=== PATIENT | male | born 2000 | race Caucasian/White ===

== ENCOUNTER 2022-06-16 10:18 | Inpatient (IN) | payer OTHER ==
[~2022-06-16 10:18] MED LIST: Iopamidol 300 61% 100 ML VIAL FS ONE
[2022-06-16] MEDS ORDERED: Morphine 4 MG/ML VIAL ONE ×2 (10:56→14:02)
[2022-06-16] MEDS ORDERED: Ondansetron PF 4 MG/2 ML Vial ONE (10:56)
[2022-06-16 11:05] LABS: #Basophils 0.1 10x3/uL (0.0-0.2); #Eosinphils 0.4 10x3/uL (0.0-0.5); #Monocytes 0.8 10x3/uL (0.0-1.1); #Neutrophils 3.5 10x3/uL (1.5-8.4); %Basophils 1.5 % (0.0-2.0); %Eosinophils 5.1 % (0.0-6.0); %Lymphocytes 31.4 % (18.0-47.0); %Monocytes 10.9 % (0.0-10.0); %Neutrophils 50.8 % (40.0-75.0); Hemoglobin 15.4 g/dL (13.5-17.5); Mean Corpuscular HGB CONC 34.5 g/dL (32.0-36.0); Mean Corpuscular Hemoglobin 30.1 pg (27.0-33.0); Mean Corpuscular Volume 87.1 fl (81.2-95.1); Mean Platelet Volume 10.4 fl (7.4-10.4); Platelet Count 221 10x3/uL (150-450); RBC Distribution Width 12.5 % (11.5-14.5); Red Blood Cell (RBC) Count 5.12 10x6/uL (4.32-5.72); White Blood Cell (WBC) Count 6.9 10x3/uL (3.5-10.5)
[2022-06-16 11:15] LABS: ALT (SGPT) 6 U/L (8-55); AST (SGOT) 14 U/L (5-34); Alkaline Phosphatase 50 U/L (40-110); Anion Gap 15 mmol/L (10-20); BUN (Urea Nitrogen) 18 mg/dL (8.9-20.6); Bilirubin, Total 0.5 mg/dL (0.2-1.2); Calc. Creatinine Clearance 0 mL/min (70-130); Calcium 9.9 mg/dL (7.8-10.44); Carbon Dioxide 28 mmol/L (22-29); Chloride 100 mmol/L (98-107); Estimated GFR 109; Globulin 2.2 g/dL (2.4-3.5); Glucose 99 mg/dL (70-105); Lipase 37 U/L (8-78); Potassium 4.4 mmol/L (3.5-5.1); Protein, Total 7.2 g/dL (6.0-8.3); Sodium 139 mmol/L (136-145)
[2022-06-16] MEDS ORDERED: Ondansetron ODT 4 MG TAB PO PRN (14:53)
[2022-06-16] MEDS ORDERED: Morphine 2 MG/ML VIAL SLOW IVP PRN (15:10)
[2022-06-16 15:21] LABS: Magnesium 2.1 mg/dL (1.6-2.6)
[2022-06-16] MEDS: Sodium Chloride 0.9% 1,000 ML IV SCH (18:35)
[2022-06-16] MEDS ORDERED: methylPREDNISolone Sod Succ 40 MG VIAL IVP SCH (20:00)
[2022-06-16] MEDS ORDERED: metroNIDAZOLE 500 MG in Premix Bag 1 BAG IVPB SCH (22:00)
[2022-06-16] MEDS: Nicotine 14 MG PATCH TD SCH (22:05)
[2022-06-17 03:01] VITALS: BMI 19.2
[2022-06-17] MEDS: Sodium Chloride 0.9% 1,000 ML IV SCH ×2 (04:05→17:15)
[2022-06-17 04:36] LABS: #Basophils 0.1 10x3/uL (0.0-0.2); #Eosinphils 0.3 10x3/uL (0.0-0.5); #Monocytes 0.5 10x3/uL (0.0-1.1); #Neutrophils 2.8 10x3/uL (1.5-8.4); %Basophils 1.1 % (0.0-2.0); %Eosinophils 5.5 % (0.0-6.0); %Lymphocytes 33.8 % (18.0-47.0); %Monocytes 9.4 % (0.0-10.0); Hemoglobin 13.5 g/dL (13.5-17.5); Mean Corpuscular HGB CONC 33.4 g/dL (32.0-36.0); Mean Corpuscular Hemoglobin 29.5 pg (27.0-33.0); Mean Corpuscular Volume 88.2 fl (81.2-95.1); Mean Platelet Volume 10.9 fl (7.4-10.4); Platelet Count 195 10x3/uL (150-450); RBC Distribution Width 12.6 % (11.5-14.5); Red Blood Cell (RBC) Count 4.58 10x6/uL (4.32-5.72); White Blood Cell (WBC) Count 5.7 10x3/uL (3.5-10.5)
[2022-06-17 04:45] LABS: Anion Gap 12 mmol/L (10-20); BUN (Urea Nitrogen) 11 mg/dL (8.9-20.6); Calc. Creatinine Clearance 113 mL/min (70-130); Carbon Dioxide 24 mmol/L (22-29); Chloride 108 mmol/L (98-107); Estimated GFR 126; Glucose 89 mg/dL (70-105); Potassium 4.5 mmol/L (3.5-5.1); Sodium 139 mmol/L (136-145)
[2022-06-17] MEDS: Acetaminophen 325 MG TAB PO PRN (10:25)
[2022-06-17] MEDS ORDERED: GoLYTELY 4,000 ml Bottle PO SCH (12:00)
[2022-06-17 13:35] LABS: Bilirubin Neg (Negative); Blood, Urine Negative (Negative); Clarity Clear (Clear); Glucose, Urine (Dipstick) Normal (Negative); Ketone, Urine Negative (Negative); Leukocyte Negative (Negative); Nitrite Negative (Negative); Protein, Urine (Dipstick) Negative (Neg-Trace); Specific Gravity, Urine 1.015 (1.005-1.030); Urobilinogen Normal mg/dL (Less than 2)
[2022-06-17 13:41] LABS: CAUTI Indications for Culture Dysuria,urgency,freq; RBC/HPF None Seen HPF (0-3); WBC/HPF 0-3 HPF (0-3)
[2022-06-17 13:42] LABS: Bacteria/HPF None Seen HPF (None Seen); Squamous Epithelial 0-3 HPF (0-3); Urine Culture Reflex No No
[2022-06-17] MEDS: Nicotine 14 MG PATCH TD SCH (20:37)
[2022-06-18] MEDS ORDERED: Ketorolac Tromethamine 30 MG/ML VIAL IVP SCH (03:45)
[2022-06-18 05:06] LABS: #Basophils 0.1 10x3/uL (0.0-0.2); #Eosinphils 0.2 10x3/uL (0.0-0.5); #Monocytes 0.4 10x3/uL (0.0-1.1); #Neutrophils 3.3 10x3/uL (1.5-8.4); %Eosinophils 4.2 % (0.0-6.0); %Monocytes 7.1 % (0.0-10.0); %Neutrophils 62.5 % (40.0-75.0); Hemoglobin 14.4 g/dL (13.5-17.5); Mean Corpuscular Hemoglobin 29.3 pg (27.0-33.0); Mean Corpuscular Volume 86.4 fl (81.2-95.1); Mean Platelet Volume 10.9 fl (7.4-10.4); Platelet Count 183 10x3/uL (150-450); RBC Distribution Width 12.1 % (11.5-14.5); Red Blood Cell (RBC) Count 4.91 10x6/uL (4.32-5.72); White Blood Cell (WBC) Count 5.2 10x3/uL (3.5-10.5)
[2022-06-18 05:18] LABS: Anion Gap 17 mmol/L (10-20); BUN (Urea Nitrogen) 10 mg/dL (8.9-20.6); Calc. Creatinine Clearance 119 mL/min (70-130); Calcium 9.1 mg/dL (7.8-10.44); Carbon Dioxide 20 mmol/L (22-29); Chloride 106 mmol/L (98-107); Estimated GFR 128; Glucose 70 mg/dL (70-105); Potassium 4.1 mmol/L (3.5-5.1); Sodium 139 mmol/L (136-145)
[2022-06-18] MEDS: Sodium Chloride 0.9% 1,000 ML IV SCH (07:03)
[2022-06-18] MEDS ORDERED: PROPOFOL 60 ML ONE (07:39)
[2022-06-18] MEDS ORDERED: Lidocaine 1% PF 5 ML VIAL ONE (07:39)
[2022-06-18] MEDS ORDERED: Fentanyl 100 MCG/2 ML VIAL ONE (07:39)
[2022-06-18] MEDS ORDERED: Ketamine 50 MG/ML (10ML VIAL) ONE (07:42)
[2022-06-18] MEDS ORDERED: PROPOFOL 20 ML ONE (08:33)
[2022-06-18] MEDS ORDERED: PHENYLEPHRINE-NS 100 MCG/ML 10 ML SYRINGE ONE (09:20)
[2022-06-18] MEDS ORDERED: Pantoprazole 40 MG VIAL IVP SCH (10:11)
[2022-06-18] MEDS: Acetaminophen 325 MG TAB PO PRN (10:22)
[2022-06-18 12:42] VITALS: BP 131/79; TEMP 97.4
[2022-06-22 12:22] LABS: EliA Celiac New Method **** NEW METHOD ****; t-Transglutaminase (tTG) IgA 0.3 EliAU/mL (<7 Negative)
== END 2022-06-18 15:20 | disposition home or self-care (01) | DRG 384 ==
LOC: CSHERS 10:18 → CSHTELE 18:19
PROVIDERS: ADMIT Internal Medicine; ATTEND Internal Medicine
PROC: 0DB78ZX Excision of Stomach, Pylorus, Via Natural or Artificial Opening Endoscopic, Diagnostic (ICD-10-PCS; principal; 2022-06-18)
PROC: 0DBP8ZZ Excision of Rectum, Via Natural or Artificial Opening Endoscopic (ICD-10-PCS; 2022-06-18)
DX: K25.9 Gastric ulcer, unspecified as acute or chronic, without hemorrhage or perforation (principal); K55.1 Chronic vascular disorders of intestine; F90.9 Attention-deficit hyperactivity disorder, unspecified type; F17.210 Nicotine dependence, cigarettes, uncomplicated; K62.1 Rectal polyp; K44.9 Diaphragmatic hernia without obstruction or gangrene; Z71.6 Tobacco abuse counseling; Z98.890 Other specified postprocedural states
CPT/HCPCS: 36415; 74177; 80048; 80053; 81001; 82607; 83516; 83605; 83690; 83735; 85025; 85652; 86140; 87040; 88305; 88342; 94760; 96374; 96375; 96376; C9113; J1885; J2270; J2405; J2704; J3010; J7050; Q9967

== ENCOUNTER 2022-10-09 13:55 | Emergency (ER) | payer OTHER | END 2022-10-09 15:41 | disposition home or self-care (01) | LOC: CSHERS 13:55 | DX: S43.51XA Sprain of right acromioclavicular joint, initial encounter (principal); W22.8XXA Striking against or struck by other objects, initial encounter; Z87.891 Personal history of nicotine dependence ==